=== PATIENT | male | born 1945 | race Two or more races ===

== ENCOUNTER 2017-07-15 15:53 | Inpatient (IN) | payer MEDICARE ==
[~2017-07-15] VITALS: Ht 190.5 cm; Wt 102.1 kg
--- NOTE | 2017-07-15 16:08 | NUR ---
BBRA; BACK PAIN, CHRONIC. DENIES TRAUMA, NAD NOTED, VSS, RESP EVEN AND UNLABORED, PT PUT ON HOSPITAL GOWN AND MONITOR. WAITING FOR MD BADILLO
[2017-07-15] MEDS ORDERED: HYDROMORPHONE 1 MG/1 ML DISP.SYRIN IV ONE ×2 (16:30→17:30)
[2017-07-15] MEDS ORDERED: ONDANSETRON HCL/PF - ER 4 MG/2 ML VIAL IV ONE (16:30)
[2017-07-15] MEDS ORDERED: ONDANSETRON HCL/PF 4 MG/2 ML VIAL ONE (16:38)
[2017-07-15] MEDS ORDERED: HYDROMORPHONE INJ 2 MG/ML DISP.SYRIN ONE ×3 (16:40→22:06)
[2017-07-15 16:47] LABS: BASOPHILS % (AUTO) 0.4 % (0.0-2.0); EOSINOPHILS # (AUTO) 0.2 /CMM (0.0-0.7); EOSINOPHILS % (AUTO) 2.1 % (0.0-6.0); HEMATOCRIT 40 % (39-51); HEMOGLOBIN 13.6 g/dL (13.5-17.5); LYMPHOCYTES % (AUTO) 13.2 % (20.0-44.0); MEAN CORPUSCULAR HEMOGLOBIN 32 PG (26.0-33.0); MEAN CORPUSCULAR HGB CONC 35 g/dl (31.0-36.0); MEAN CORPUSCULAR VOLUME 91 fL (80-96); MONOCYTES # (AUTO) 0.3 /CMM (0.1-1.30); MONOCYTES % (AUTO) 3.8 % (2.0-12.0); NEUTROPHILS % (AUTO) 80.5 % (43.0-81.0); PLATELET COUNT (AUTO) 264 /CMM (150-450); RDW COEFFICIENT OF VARIATION 13.3 (11.5-15.0); RED BLOOD CELL COUNT(AUTO) 4.33 MIL/uL (4.5-6.0); WHITE BLOOD COUNT (AUTO) 7.5 K/uL (4.3-11.0)
[2017-07-15 16:58] LABS: CALCIUM, SERUM 9.8 mg/dL (8.5-10.1); CREATININE 0.6 mg/dL (0.6-1.3); POTASSIUM 3.7 mmol/L (3.5-5.1)
[2017-07-15 17:03] LABS: ALBUMIN 3.8 g/dL (3.4-5.0); BILIRUBIN,DIRECT 0.1 mg/dL (0.0-0.2); BILIRUBIN,TOTAL 0.3 mg/dL (0.2-1.0); TOTAL PROTEIN, SERUM 7.4 g/dL (6.4-8.2)
--- NOTE | 2017-07-15 17:39 | NUR ---
PT TO CTSCAN.
--- NOTE | 2017-07-15 17:40 | NUR ---
PT UNABLE TO PROVIDE URINE AT THIS TIME. WILL TRY AGAIN IN 10 MINS.
[2017-07-15 18:27] LABS: APPEARANCE,URINE Clear (CLEAR); BILIRUBIN,URINE Negative (NEGATIVE); BLOOD, URINE Trace-intact Ery/uL (NEGATIVE); COLOR,URINE Yellow (YELLOW); KETONES,URINE Trace (NEGATIVE); LEUKOCYTE ESTERASE ,URINE Small (NEGATIVE); NITRITE, URINE Positive (NEGATIVE); PROTEIN,URINE Negative (NEGATIVE); UGLUCOSE Negative (NEGATIVE); UROBILINOGEN,URINE 0.2 EU/dL (0.2)
[2017-07-15 18:39] LABS: BACTERIA,URINE Many /HPF (None Seen)
[2017-07-15 18:40] LABS: SQUAMOUS EPITHELIAL CELL,UR Few /HPF (None Seen)
[2017-07-15] MEDS ORDERED: PIPERACILLIN /TAZOBACTAM 3.375 G in IV D5W 50 ML IV ONE (20:00)
--- NOTE | 2017-07-15 21:00 | NUR ---
REPORT GIVEN TO TAO/RN ON BEHALF OF PRIMARY NURSE
[2017-07-15 21:30] VITALS: BP 137/90
--- NOTE | 2017-07-15 21:30 | NUR ---
MS SALES AGENT TRADING STAMPS NOTES: ADMITTED A 71 YO MALE PRESENTING AT THE EMERGENCY ROOM WITH BACK PAIN, SPINAL STENOSIS. PATIENT CAME TO THE UNIT WITH IVF ON RIGHT AC G#20, WITH GOOD RETURN FLOW. ORIENTED PATIENT TO UNIT, DOCTORS AND INFORMED OF THE CARE PLAN. PATIENT SEEN BY DR. LAZO ON THE FLOOR. ADMISSION ORDERS CARRIED OUT. PATIENT PLACED ON OXYGEN INHALATION VIA NASAL CANNULA AT 2LPM. ADMISSION ASSESSMENT DONE. SKIN AND BODY ASSESSMENT DONE. PICTURES TAKEN AND PLACED IN THE CHART. WILL MONITOR PATIENT'S PAIN STATUS AND CURRENT CONDITION.
[2017-07-15] MEDS: HYDROMORPHONE INJ 2 MG/ML DISP.SYRIN IV PRN (22:45)
[2017-07-15] MEDS ORDERED: Z GUARD REMEDY 2 OZ OINT TP PRN (23:30)
[2017-07-15] MEDS ORDERED: MAG HYDROX/AL HYDROX/SIMETH 30 ML UDC PO PRN (23:30)
[2017-07-15] MEDS ORDERED: CEFTRIAXONE 1 G in IV D5W 50 ML IV SCH (23:30)
[2017-07-15] MEDS ORDERED: MAGNESIUM HYDROXIDE 30 ML UDC PO PRN (23:30)
[2017-07-15] MEDS ORDERED: ONDANSETRON HCL/PF 4 MG/2 ML VIAL IVP PRN (23:30)
[2017-07-15] MEDS ORDERED: HYDROCODONE/APAP 5/325MG 1 EACH TABLET PO PRN (23:30)
[2017-07-15 23:52] VITALS: BP 137/90
[2017-07-16] MEDS ORDERED: CEFTRIAXONE 1 G VIAL ONE (00:36)
[2017-07-16] MEDS: IV D5/0.45 NACL 1,000 ML IV PRN (00:53)
[2017-07-16] MEDS ORDERED: HYDROCODONE/APAP 5/325MG 1 EACH TABLET ONE (01:26)
[2017-07-16] MEDS ORDERED: HYDROMORPHONE INJ 2 MG/ML DISP.SYRIN ONE (02:42)
[2017-07-16 03:06] VITALS: BP 139/82
[2017-07-16] MEDS: HYDROMORPHONE INJ 2 MG/ML DISP.SYRIN IV PRN ×4 (03:08→15:45)
[2017-07-16] MEDS ORDERED: GABA-534 (04:39)
[2017-07-16] MEDS ORDERED: PANT40TA4 (04:39)
[2017-07-16] MEDS ORDERED: TEMA15CA (04:39)
[2017-07-16] MEDS ORDERED: DULO60CA63 (04:39)
[2017-07-16] MEDS ORDERED: LISI2.5T2 (04:39)
[2017-07-16] MEDS ORDERED: PREG100C (04:39)
[2017-07-16] MEDS ORDERED: ATOR20TA (04:39)
[2017-07-16] MEDS ORDERED: LORA0.5T (04:39)
[2017-07-16] MEDS ORDERED: LUBI24CA5 (04:39)
[2017-07-16] MEDS ORDERED: DIGO125T (04:39)
[2017-07-16] MEDS ORDERED: NYST15CR (04:39)
[2017-07-16] MEDS ORDERED: SPIR25TA4 (04:39)
[2017-07-16] MEDS ORDERED: ENOX40DI9 (04:39)
[2017-07-16] MEDS ORDERED: MUPI22OI7 (04:39)
[2017-07-16] MEDS ORDERED: CARV6.252 (04:39)
[2017-07-16] MEDS ORDERED: TRAZ150T75 (04:39)
[2017-07-16] MEDS ORDERED: ACETAMINOPHEN 325 MG TABLET ONE (05:42)
[2017-07-16] MEDS: ACETAMINOPHEN 325 MG TABLET PO PRN ×2 (05:46→14:41)
--- NOTE | 2017-07-16 06:14 | NUR ---
MS RN NOTES: IVF SITE CHANGED AND REINSERTED TO THE LEFT WRIST WITH G#22, WITH GOD RETURN FLOW, PATIENT HOOKED BACK UP TO D5 1/2 NS @ 75ML/HR. WILL CONTINUE TO MONITOR PATIENT.
--- NOTE | 2017-07-16 06:47 | NUR ---
MS RN CLOSING NOTES: PATIENT IN BED, WITH IVF ON LEFT WRIST G#22 D5 1/2 NS @75ML/HR. PATIENT COMPLAINING OF PAIN THIS TIME. WILL GIVE DILAUDID MEDICATION ORDERED. COUNTER PERSON CAME TO DRAW BLOOD ON PATIENT. PLACED CALL LIGHT WITHIN PATIENT'S REACH.BED ON LOCKED POSITION. WILL ENDORSE PATIENT TO DAYSHIFT NURSE.
[2017-07-16] MEDS ORDERED: HYDROMORPHONE 1 MG/1 ML DISP.SYRIN IV PRN (07:00)
[2017-07-16 07:37] LABS: BASOPHILS % (AUTO) 0.3 % (0.0-2.0); EOSINOPHILS # (AUTO) 0.2 /CMM (0.0-0.7); EOSINOPHILS % (AUTO) 2.3 % (0.0-6.0); HEMATOCRIT 36 % (39-51); HEMOGLOBIN 12.3 g/dL (13.5-17.5); LYMPHOCYTES # (AUTO) 1.3 /CMM (0.8-4.8); LYMPHOCYTES % (AUTO) 17.3 % (20.0-44.0); MEAN CORPUSCULAR HEMOGLOBIN 33 PG (26.0-33.0); MEAN CORPUSCULAR HGB CONC 35 g/dl (31.0-36.0); MEAN CORPUSCULAR VOLUME 94 fL (80-96); MONOCYTES # (AUTO) 0.6 /CMM (0.1-1.30); MONOCYTES % (AUTO) 7.9 % (2.0-12.0); NEUTROPHILS # (AUTO) 5.4 /CMM (1.8-8.9); NEUTROPHILS % (AUTO) 72.2 % (43.0-81.0); PLATELET COUNT (AUTO) 227 /CMM (150-450); RDW COEFFICIENT OF VARIATION 14.3 (11.5-15.0); RED BLOOD CELL COUNT(AUTO) 3.78 MIL/uL (4.5-6.0); WHITE BLOOD COUNT (AUTO) 7.5 K/uL (4.3-11.0)
[2017-07-16 07:43] LABS: INR 1.05 (0.87-1.13); PROTHROMBIN TIME 10.9 SECS (9.5-12.7)
--- NOTE | 2017-07-16 07:58 | NUR ---
MS/RN OPENING NOTE RECEIVED PATIENT IN BED AWAKE. ALERT AND ORIENTED X4. RESPIRATION REGULAR AND UNLABORED. DENIES SOB AND PAIN PAIN AT THIS TIME. IN NO APPARENT DISTRESS. LEFT WRIST G22 PATENT AND IV INFUSING WITH NO S/SX INFILTRATION. BED LOW AND LOCKED. SIDE RAIL UP X2. CALL LIGHT WITHIN REACH. WILL CONTINUE TO MONITOR.
[2017-07-16 08:00] VITALS: BP 131/73
[2017-07-16 08:11] LABS: ALBUMIN 3.2 g/dL (3.4-5.0); BILIRUBIN,TOTAL 0.2 mg/dL (0.2-1.0); CALCIUM, SERUM 9.3 mg/dL (8.5-10.1); CREATINE KINASE MB 0.6 ng/mL (0-3.6); CREATININE 0.6 mg/dL (0.6-1.3); MAGNESIUM 1.9 mg/dL (1.8-2.4); PHOSPHORUS 3.6 mg/dL (2.5-4.9); POTASSIUM 3.3 mmol/L (3.5-5.1); THYROID STIMULATING HORMONE 1.898 uIU/mL (0.358-3.74); TOTAL PROTEIN, SERUM 6.8 g/dL (6.4-8.2)
--- NOTE | 2017-07-16 10:31 | NUR ---
MS/RN Medical records Release of medical records form signed and faxed to [facility] to obtain records at request of Dr Connell.
[2017-07-16] MEDS ORDERED: POTASSIUM CHLORIDE 20 MEQ TAB.PRT.SR PO SCH (11:00)
--- NOTE | 2017-07-16 11:46 | NUR ---
MS/RN Pain consult Pain management consult ordered, Dr Jackson called and message left.
--- NOTE | 2017-07-16 14:10 | NUR ---
MS/RN Dr Jackson Second call placed to Dr Jackson's office, spoke with Brigitte, stated that she would forward message to MD. -Dr Jackson
[2017-07-16 16:00] VITALS: BP 135/88
--- NOTE | 2017-07-16 19:45 | NUR ---
MS RN NOTES RECEIVED ON BED A/O X4,CLAIMED HE'S IN A LOT OF PAIN.WILL MEDICATE.IVF INFUSING WELL ON LEFT WRIST,SITE PATENT.CALL LIGHT IN REACH,NEEDS ANTICIPATED.
[2017-07-16 20:00] VITALS: BP 126/83
--- NOTE | 2017-07-16 20:40 | NUR ---
MS RN NOTES MD COMMERCIAL INTELLIGENCE MANAGER WAS PAGE REGARDING PATIENT CONCERN ABOUT PAIN MANAGEMENT.
--- NOTE | 2017-07-16 20:50 | NUR ---
MS RN NOTES SPOKE TO DR LAZO,MADE AWARE THAT PATIENT WANTS DILAUDID IV INSTEAD OF PO THAT WAS CHANGED BY DR JENKINS.SHE SAID SHE CANT CHANGE IT,PATIENT INFORMED,WILL MEDICATE WITH PO DILAUDID.
[2017-07-16] MEDS: HYDROMORPHONE HCL 2 MG TABLET PO PRN (20:59)
--- NOTE | 2017-07-16 20:59 | NUR ---
MS RN NOTES PAIN MANAGEMENT C/O LOWER BACK PAIN,8/10 ON PAIN SCALE,MEDICATED WITH DILAUDID 3MG PO NEW ORDER FOR PAIN MANAGEMENT.
[2017-07-16] MEDS: CEFTRIAXONE 1 G in IV D5W 50 ML IV SCH (23:39)
[2017-07-16] MEDS ORDERED: GABAPENTIN 300 MG CAPSULE ONE (23:45)
[2017-07-16] MEDS: GABAPENTIN 300 MG CAPSULE PO SCH (23:47)
[2017-07-16] MEDS ORDERED: PREGABALIN 100 MG CAPSULE ONE (23:58)
[2017-07-17] MEDS ORDERED: PREGABALIN 25 MG CAPSULE PO SCH
[2017-07-17] MEDS: ZOLPIDEM TARTRATE 5 MG TABLET PO PRN (00:11)
--- NOTE | 2017-07-17 00:11 | NUR ---
MS RN NOTES C/O INSOMNIA,AMBIEN 5MG PO GIVEN PER PATIENT REQUEST.
[2017-07-17] MEDS: HYDROMORPHONE HCL 2 MG TABLET PO PRN ×6 (00:48→15:45)
--- NOTE | 2017-07-17 00:48 | NUR ---
MS RN NOTES PAIN MANAGEMENT STILL IN PAIN 8/10 ON PAIN SCALE,CANT WAIT FOR 0100 DUE,MEDICATED WITH DILAUDID 3MG PO PER PATIENT REQUEST.
--- NOTE | 2017-07-17 03:00 | NUR ---
MS RN NOTES SLEEPING,AROUSABLE TO VERBAL STIMULI
--- NOTE | 2017-07-17 05:22 | NUR ---
MS RN NOTES PAIN MANAGEMENT C/O GENERALIZED PAIN,MEDICATED WITH DILAUDID DILAUDID 3MG PO ORDERED.HE CLAIMED HARD TO SWALLOW,THAT ITS THE SIDE EFFECT OF TAKING PO PAIN PILL.
--- NOTE | 2017-07-17 07:01 | NUR ---
MS RN NOTES STILL COMPLAINING OF GENERALIZED PAIN,CLAIMED DILAUDID PO IS NOT EFFECTIVE,HE WANTS IV DILAUDID.DR JENKINS DOESNT WANT TO CHANGE IT.IVF INFUSING CALL LIGHT IN REACH,NEEDS ATTENDED.WILL ENDORSE TO DAY NURSE FOR JAI.
[2017-07-17 08:00] VITALS: BP 159/99
--- NOTE | 2017-07-17 08:00 | NUR ---
ms rn received on bed, awake,alert,oriented x 4,not in distress, respirations even and unlabored,no sob noted, lungs are clear,abdomen soft,positive bowel sounds,will monitor patient's condition.
[2017-07-17 08:06] LABS: CALCIUM, SERUM 9.6 mg/dL (8.5-10.1); CREATININE 0.6 mg/dL (0.6-1.3); POTASSIUM 3.5 mmol/L (3.5-5.1)
--- NOTE | 2017-07-17 09:00 | NUR ---
ms yin breakfast served,due meds given,tolerated well.
[2017-07-17] MEDS: GABAPENTIN 300 MG CAPSULE PO SCH ×2 (09:27→20:26)
[2017-07-17] MEDS: PREGABALIN 100 MG CAPSULE PO SCH ×3 (09:27→18:10)
--- NOTE | 2017-07-17 10:00 | NUR ---
ms rn was seen and examined by dr. monique raymundo/ orders made and carried out.
--- NOTE | 2017-07-17 11:45 | NUR ---
ms rn was seen by porter sample case and protective services social worker.
[2017-07-17] MEDS ORDERED: NITR100C PO (12:47)
[2017-07-17 16:00] VITALS: BP 143/91
--- NOTE | 2017-07-17 17:00 | NUR ---
MS RN WAS SEEN BY DR. ROBLERO W/ ORDERS MADE AND CARRIED OUT.
[2017-07-17] MEDS ORDERED: METHOCARBAMOL (750MG) 750 MG TABLET PO SCH ×2 (17:30)
[2017-07-17] MEDS: METHADONE HCL 10 MG TABLET PO SCH (18:10)
[2017-07-17] MEDS: DULOXETINE HCL 30 MG CAPSULE.DR PO SCH (18:10)
[2017-07-17] MEDS: METHOCARBAMOL (750MG) 750 MG TABLET PO SCH (18:11)
--- NOTE | 2017-07-17 18:30 | NUR ---
MS RN PATIENT REMOVED HIS IV, NO DISTRESS NOTED. NO CHANGE OF CONDITION.
--- NOTE | 2017-07-17 19:05 | NUR ---
MS RN OPENING NOTES: RECEIVED PT ON ROOM AIR AND IS AWAKE IN HIGH MAYES'S POSITION. PT IS A/OX3-4. PT HAS NO IV SITE AT THIS MOMENT HE PULLED IT OUT DURING CHANGE OF SHIFT. NO SOB AT THIS TIME. CALL LIGHT WITHIN PT'S REACH. BED KEPT IN LOW, LOCKED POSITION, AND SIDE RAILS X 2UP. WILL CONTINUE TO MONITOR PT.
[2017-07-17 20:00] VITALS: BP 118/85
[2017-07-17 20:49] VITALS: BP 118/54
[2017-07-17] MEDS: oxyCODONE IR immediate release 5 MG PO PRN (22:13)
[2017-07-17] MEDS: CEFTRIAXONE 1 G in IV D5W 50 ML IV SCH (23:03)
--- NOTE | 2017-07-17 23:40 | NUR ---
MS RN NOTES: SPOKE WITH DR. LAZO AND INFORMED HER THAT PT IS VERBALIZING THAT HE IS HAVING ANXIETY AND THAT HE HAS A BACKGROUND OF PAIN SEEKING BEHAVIOR. DR. LAZO ORDERED XANAX 0.25MG PO Q6HR PRN.
[2017-07-17] MEDS ORDERED: ALPRAZOLAM 0.25 MG TABLET ONE (23:50)
[2017-07-18] VITALS: BP 126/71
[2017-07-18] MEDS: ALPRAZOLAM 0.25 MG TABLET PO PRN ×3 (00:01→18:04)
--- NOTE | 2017-07-18 00:04 | NUR ---
MS RN NOTES: VITAL SIGNS STABLE. PT VERBALIZING OF ANXIETY. XANAX 0.25MG PO WAS ADMINISTERED. WILL CONTINUE TO MONITOR PT.
[2017-07-18 00:45] VITALS: BP 121/76
[2017-07-18] MEDS: ZOLPIDEM TARTRATE 5 MG TABLET PO PRN ×2 (00:48→22:57)
[2017-07-18] MEDS: GABAPENTIN 300 MG CAPSULE PO SCH ×3 (04:33→20:22)
[2017-07-18] MEDS: oxyCODONE IR immediate release 5 MG PO PRN ×3 (04:33→15:34)
[2017-07-18] MEDS: METHOCARBAMOL (750MG) 750 MG TABLET PO SCH ×3 (05:08→21:19)
--- NOTE | 2017-07-18 07:36 | NUR ---
MS RN CLOSING NOTES: ALL NEEDS WERE ATTENDED AND ANTICIPATED FOR. PT KEPT CLEAN, DRY, AND COMFORTABLE. RECEIVED PT ON ROOM AIR AND IS AWAKE IN HIGH MAYES'S POSITION. PT IS A/OX3-4. PT HAS IV SITE ON L WRIST #20G AND IS BEING INFUSED WITH D5 1/2 NS AT 75ML/HR. CALL LIGHT WITHIN PT'S REACH. BED KEPT IN LOW, LOCKED POSITION, AND SIDE RAILS X 2UP. ENDORSED TO AM NURSE FOR JAI.
[2017-07-18 08:00] VITALS: BP 129/81
--- NOTE | 2017-07-18 08:00 | NUR ---
RN NOTES RECEIVED PATIENT IN THE BED, A/O X3/4, PATIENT HAS NO RESPIRATORY DISTRESS, ENCOURAGED TO EXPRESS FEELINGS AND CONCERNS, PATIENT HAS NO C/O PAIN AT THIS TIME, V/S STABLE, IV LINE ON LEFT WRIST D5 1/2 NS AT 75 ML/HR, INTACT, ASSIST PATIENT TURN AND REPOSITION Q2 HR, PATIENT USING URINAL, CALL LIGHT WITHIN TO REACH, SAFETY PRECAUTION MAINTAINED ALL THE TIME.
[2017-07-18] MEDS: PREGABALIN 100 MG CAPSULE PO SCH ×3 (08:55→17:39)
[2017-07-18] MEDS: METHADONE HCL 10 MG TABLET PO SCH (08:55)
--- NOTE | 2017-07-18 08:58 | NUR ---
RN NOTES ADMINISTERED XANAX 0.25 MG PO PRN FOR ANXIETY, V/S TAKEN BP-129/81, P-97 CONTINUED MONITORING.
--- NOTE | 2017-07-18 10:58 | NUR ---
RN NOTES SCHEDULED MEDICATION WERE ADMINISTERED FOR PAIN NOT EFFECTIVE, ADMINISTERED OX -IR 20 MG PO PRN PAIN 10/10 GENERALIZED CHRONIC, PER PATIENT REQUEST, V/S TAKEN BP 141/77, P-115, CONTINUED MONITORING.
[2017-07-18] MEDS: IV D5/0.45 NACL 1,000 ML IV PRN (11:37)
[2017-07-18] MEDS: NITROFURANTOIN/NITROFURAN MAC 100 MG CAPSULE PO SCH (15:34)
--- NOTE | 2017-07-18 15:34 | NUR ---
RN NOTES ADMINISTERED OX-IR 20 MG PO PRN FOR GENERALIZED PAIN 04/15 , PER PATIENT REQUEST, V/S TAKEN BP-121/74, P-101, CALL LIGHT WITHIN TO REACH, CONTINUED MONITORING.
[2017-07-18 16:00] VITALS: BP 121/74
[2017-07-18] MEDS: DULOXETINE HCL 30 MG CAPSULE.DR PO SCH (17:39)
--- NOTE | 2017-07-18 18:04 | NUR ---
RN NOTES ADMINISTERED XANAX 0.25 MG PO PRN FOR ANXIETY PRESCRIBED. PER PATIENT REQUEST, V/S STABLE BP -121/74, P-101, CONTINUED MONITORING.
--- NOTE | 2017-07-18 18:45 | NUR ---
rn notes medication were administered for anxiety effective, v/s stable, no acute respiratory distress, call light within to reach, continued monitoring. endorsed oncoming nurse for continuation of care.
--- NOTE | 2017-07-18 19:35 | NUR ---
MS RN OPENING NOTES RECEIVED PATIENT IN THE BED, A/O X 3-4, NO RESPIRATORY DISTRESS, NO C/O PAIN NOTED @ THIS TIME. PT STATED HE WILL INFORM THE NURSE WHEN PAIN MEDICINE NEEDED. ENCOURAGED TO EXPRESS FEELINGS AND CONCERNS. V/S STABLE, IV LINE ON LEFT WRIST D5 1/2 NS AT 75 ML/HR, INTACT, PATENT. BED IN LOW LOCKED POSITION. CALL LIGHT WITHIN TO REACH, WILL OBSERVE CLOSELY.
[2017-07-18 20:00] VITALS: BP 118/67
--- NOTE | 2017-07-18 22:58 | NUR ---
PRN AMBIEN GIVEN PATIENT ASKED FOR AMBIEN FOR SLEEPLESSNESS, PRN AMBIEN GIVEN. WILL MONITOR FOR EFFECTIVENESS.
--- NOTE | 2017-07-18 23:57 | NUR ---
MS RN NOTE PT NOTED TO BE SLEEPING COMFORTABLY @ THIS TIME. AMBIEN WAS EFFECTIVE.
[2017-07-19] MEDS: oxyCODONE IR immediate release 5 MG PO PRN ×4 (03:11→17:42)
[2017-07-19] MEDS: IV D5/0.45 NACL 1,000 ML IV PRN (03:11)
--- NOTE | 2017-07-19 03:11 | NUR ---
PRN PAIN MED GIVEN PATIENT C/O LOWER BACK PAIN, PRN OXYCODONE GIVEN. V/S WNL. WILL REASSESS FOR EFFECTIVENESS.
[2017-07-19] MEDS: NITROFURANTOIN/NITROFURAN MAC 100 MG CAPSULE PO SCH ×2 (04:46→15:36)
[2017-07-19] MEDS: GABAPENTIN 300 MG CAPSULE PO SCH ×2 (04:46→13:45)
[2017-07-19] MEDS: METHOCARBAMOL (750MG) 750 MG TABLET PO SCH ×2 (05:03→13:46)
--- NOTE | 2017-07-19 06:49 | NUR ---
MS RN CLOSING NOTES PATIENT SLEPT INTERMITTENTLY @ NIGHT. A/O X 3-4, NO RESPIRATORY DISTRESS, HAD C/O PAIN @ NIGHT, PRN PAIN MEDS & SCHEDULED MEDS GIVEN. ASSISTED WITH ALL ADL'S. HAD TO SPEND EXTRA TIME WITH THE PATIENT SINCE PATIENT BECOMES EMOTIONAL & STARTS CRYING. ENCOURAGED TO EXPRESS FEELINGS AND CONCERNS. V/S STABLE, IV LINE ON LEFT WRIST D5 1/2 NS AT 75 ML/HR, INTACT, PATENT. ALL NEEDS MET. BED IN LOW LOCKED POSITION. CALL LIGHT WITHIN TO REACH, WILL ENDORSE TO AM RN FOR CONTINUITY OF ACRE.
--- NOTE | 2017-07-19 07:15 | NUR ---
MS RN OPENING NOTES PT RECEIVED SLEEPING AT THIS TIME. PT TOLERATING ROOM AIR WITH NO OBVIOUS S/S OF RESPIRATORY DISTRESS. IVC AT L WRIST INTACT AND OPERATIONAL. WILL BRIEF PT ON TODAY'S POC AND FULLY ASSESS WHEN AWAKE.
--- NOTE | 2017-07-19 07:35 | NUR ---
RN NOTES PT A&0X3 AND TOLERATING ROOM AIR WITHOUT SOB. PT REPORTING 10/10 PAIN TO LOWER BACK. PT REQUESTING SPECIFIC PRN ANALGESIA, WILL ADMIN. IVC AT LEFT WRIST G#20 INTACT AND OPERATIONAL. BED IN LOWEST LOCKED POSITION WITH HANDRAILS X2 AND CALL SANTILLAN WITHIN REACH. PT BRIEFED ON TODAY'S POC AND IS WITHOUT CONCERN OR COMPLAINT AT THIS TIME.
[2017-07-19 08:00] VITALS: BP 124/72
[2017-07-19] MEDS ORDERED: DOCUSATE SODIUM 100 MG CAPSULE PO SCH (09:00)
[2017-07-19] MEDS: PREGABALIN 100 MG CAPSULE PO SCH ×3 (09:02→17:40)
[2017-07-19] MEDS: ALPRAZOLAM 0.25 MG TABLET PO PRN ×2 (09:03→15:35)
[2017-07-19] MEDS: METHADONE HCL 10 MG TABLET PO SCH (09:03)
[2017-07-19] MEDS ORDERED: DIGOXIN 0.125 MG TABLET PO SCH (13:00)
[2017-07-19] MEDS ORDERED: APIXABAN 5 MG TABLET PO SCH (13:23)
[2017-07-19 16:00] VITALS: BP 111/62
--- NOTE | 2017-07-19 16:43 | NUR ---
RN NOTES. PREPARING PT FOR D/C PER MD. PT REFUSING SKIN PHOTOS/DOCUMENTATION. WILL CONSENT TO BI LAT LOWER EXTREMITIES, NO OTHERS.
[2017-07-19] MEDS ORDERED: DULOXETINE HCL 30 MG CAPSULE.DR PO SCH (17:00)
[2017-07-19] MEDS ORDERED: ACETAMINOPHEN 325 MG TABLET PO PRN (17:00)
--- NOTE | 2017-07-19 17:30 | NUR ---
RN NOTES. ENDORSEMENT CALLED TO MARINA AT [facility].
--- NOTE | 2017-07-19 17:45 | NUR ---
RN D/C NOTES, PT PREPARED FOR D/C PER MD. PT TOLERATING ROOM AIR AND DENIES SOB. PT WITHOUT IVC AND NAD AT SITE. PT PRESENTED WITHOUT BELONGINGS AND DOCUMENT SIGNED. PT REPORTING SOME ANXIETY ABOUT TRANSFER AND REMAINS WITH REPORTED SEVERE CHRONIC LOWER BACK PAIN, PRN ADMINISTERED FOR PAIN AND ANXIETY PRIOR TO D/C. D/C REPORT CALLED THROUGH TO MARINA AT 1730, MEDICATION LIST FAXED IN [facility] OF PATIENT. PT BRIEFED ON [facility] D/C PACKET AND IS VERBALIZING UNDERSTANDING. PT TRANSPORT WITH EMT, PT WITHOUT CONCERN OR COMPLAINT AT THIS TIME.
== END 2017-07-19 18:10 | DRG 689 ==
LOC: ER 15:54 → MED 20:46
PROVIDERS: ADMIT Internal Medicine; ATTEND Internal Medicine
DX: N39.0 Urinary tract infection, site not specified (principal); R53.2 Functional quadriplegia; F33.3 Major depressive disorder, recurrent, severe with psychotic symptoms; D68.59 Other primary thrombophilia; I48.91 Unspecified atrial fibrillation; F11.10 Opioid abuse, uncomplicated; B96.89 Other specified bacterial agents as the cause of diseases classified elsewhere; G89.4 Chronic pain syndrome; I10 Essential (primary) hypertension; M48.061 Spinal stenosis, lumbar region without neurogenic claudication; Z79.891 Long term (current) use of opiate analgesic; Z76.5 Malingerer [conscious simulation]; Z88.1 Allergy status to other antibiotic agents; K62.89 Other specified diseases of anus and rectum; T40.2X5A Adverse effect of other opioids, initial encounter
CPT/HCPCS: 36415; 71045-TC; 80048-TC; 80053-TC; 80061-TC; 80076-TC; 80162-TC; 81000-TC; 82150-TC; 82553-TC; 82746; 83540-TC; 83690-TC; 83735-TC; 83880; 84100-TC; 84443-TC; 85025-TC; 85730-TC; 87040-TC; 87081-TC; 87086-TC; 87186-TC; 93307-TC; A4606; J0696; J1170; J2405; J2543; J3490; J7060; Z7610

== ENCOUNTER 2022-11-21 18:06 | Emergency (ER) | payer MEDICARE, OTHER ==
[~2022-11-21] VITALS: Ht 177.8 cm; Wt 110.9 kg
[~2022-11-21 18:06] MED LIST: ATOR20TA; CARV6.252; DIGO125T; DULO60CA64; ENOX40DI9; GABA-534; LISI2.5T2; LORA0.5T; LUBI24CA5; MUPI22OI7; NITR100C PO; NYST15CR; PANT40TA49; PREG100C; SPIR25TA6; TEMA15CA; TRAZ150T75
--- NOTE | 2022-11-21 18:10 | NUR ---
receved pt 77 yrs male from [facility] C/o pain in face for 3 week awake and RESPIRATION SPONT AND EASY
--- NOTE | 2022-11-21 18:30 | NUR ---
SEEN BY DR. CALL
[2022-11-21] MEDS ORDERED: MORPHINE SULFATE INJ 4 MG/ML DISP.SYRIN ONE (18:40)
[2022-11-21] MEDS: MORPHINE SULFATE INJ 2 MG/ML DISP.SYRIN IM ONE ×2 (18:43→18:46)
--- NOTE | 2022-11-21 19:00 | NUR ---
TO CT SCAN
--- NOTE | 2022-11-21 19:30 | NUR ---
BELL LUNA RN
--- NOTE | 2022-11-21 20:22 | NUR ---
[facility] ETA: 45-60 MIN
[2022-11-21 21:21] VITALS: BP 128/75
--- NOTE | 2022-11-21 21:21 | NUR ---
[facility] AT BEDSIDE TO TAKE PT BACK TO FACILITY
== END 2022-11-21 21:57 | disposition home or self-care (01) ==
LOC: ER 18:24
DX: R51.9 Headache, unspecified (principal); I10 Essential (primary) hypertension; I48.91 Unspecified atrial fibrillation; Z88.8 Allergy status to other drugs, medicaments and biological substances; Z79.899 Other long term (current) drug therapy
CPT/HCPCS: 99285; 70486; 96372; J2270